=== PATIENT | male | born 2000 | race Caucasian/White ===

== ENCOUNTER 2024-04-28 10:36 | Emergency (ER) | payer OTHER, SELFPAY ==
[2024-04-28 10:37] VITALS: BP 138/87
[2024-04-28 11:16] VITALS: BP 146/73
--- NOTE | 2024-04-28 11:26 | ED.GENMED ---
History of Present Illness
General
Chief Complaint: Headache
Time Seen by Provider: 04/28/24 11:09
History of Present Illness
History of Present Illness:
23-year-old previously healthy male presents to the emergency department for evaluation of right-sided headache ongoing for the past week, describes a pressure behind the right eye without obvious modifying factors. Pain was gradual in onset, has
not worsened in the past several days. Has been taking Tylenol and ibuprofen without relief. Also notes that he feels as though his ears been popping and took decongestant medications without relief. No vomiting, photophobia, neck pain, fever, or
chills. No recent or remote head trauma
Review of Systems
Review of Systems
Allergies reviewed?: Yes
All Other Systems: ROS reviewed and negative except as documented in HPI and ROS
Phy Exam
Physical Exam
Physical Exam:
GEN: Well appearing, NAD, WDWN
HEENT: Oral mucosa moist, no scleral icterus, no nasal congestion, TMs clear bilaterally
Cardiac: Regular rate
Lung: No respiratory distress, no tachypnea
MSK: No gross deformity or injuries
Skin: Good color, no pallor or jaundice, no rashes
Neuro: AO x3; CN II-XII grossly intact. BUE strength 5/5 in all loya, sensation intact and symmetric. BLE strength 5/5 in all loya, sensation intact and symmetric
Psych: Calm, cooperative
Course
Orders/Labs/Results
Orders:
Orders
04/28/24 11:20
CT Head W/o Iv Contrast Urgent
Comment:
Reason For Exam: new persistent headache
Vital Signs
Initial and Last Documented VS:
Initial Vital Signs
Temp Pulse Resp BP Pulse Ox
98.0 F 67 16 138/87 100
04/28/24 10:37 04/28/24 10:37 04/28/24 10:37 04/28/24 10:37 04/28/24 10:37
Last Documented Vital Signs
Temp Pulse Resp BP Pulse Ox
98.0 F 92 18 146/73 100
04/28/24 10:37 04/28/24 11:16 04/28/24 11:16 04/28/24 11:16 04/28/24 11:16
MDM/Problems Addressed
MDM/Problems Addressed:
CT of the head obtained due to the persistent nature of the headache despite his normal neurologic exam, this was reassuring with no evidence of hemorrhage or mass. I did offer the patient IV migraine medications however he declined will prefer to
be discharged. Likely intractable migraine. He has no URI symptoms to suggest acute sinusitis that would warrant antibiotics.
*Critical Care Note
Total Time (30-74mins, 75-104mins- exclusive of procedures): Not Applicable
ED Attending Note
-
Portions of this chart may have been created with voice recognition software.� Occasional wrong word or��sound alike� substitutions may have occurred due to the inherent limitations of voice recognition software.
Discharge Plan
Departure
Patient Disposition: Home (Routine Discharge)
Date of Disposition: 04/28/24
Time of Disposition: 12:52
Patient with high blood pressure during this ER visit?: No
Discharge Problem:
Headache
Instructions: Headache, Adult (DC)
Prescriptions:
No Action
doxycycline hyclate 100 MG capsule
100 mg PO Q12 Qty: 20 0RF
Referrals:
UNKNOWN - PT DOES,NOT KNOW [Family Provider] -
Interventions
Interventions:
*Risk Screen - Suicide Last Done: 04/28/24 11:15
*General Assessment Last Done: 04/28/24 11:15
*Neglect/Abuse Screening Last Done: 04/28/24 11:15
ED- Neurological Assessment Last Done: 04/28/24 11:15
Discharge Date and Time
Print Language: SAMMARINESE
== END 2024-04-28 13:11 | disposition home or self-care (01) ==
LOC: EMR 10:36
PROVIDERS: EMERGENCY PHYSICIAN Student in an Organized Health Care Education/Training Program
DX: R51.9 Headache, unspecified (principal)
CPT/HCPCS: 99284; 70450